=== PATIENT | male | born 1975 | race Caucasian/White ===

== ENCOUNTER 2019-06-09 05:55 | Emergency (ER) | payer SELFPAY ==
[~2019-06-09] VITALS: Ht 170.2 cm; Wt 73.0 kg
[2019-06-09] MEDS ORDERED: KETOROLAC 30MG/ML VIAL IM ONE (07:00)
[2019-06-09 14:32] VITALS: BP 115/70
== END 2019-06-09 14:34 | disposition home or self-care (01) ==
LOC: ER 05:55
DX: M54.5 Low back pain (principal)
CPT/HCPCS: 72148; 96372; 99285; J1885